=== PATIENT | female | born 1975 | race Caucasian/White ===

== ENCOUNTER 2024-05-24 17:14 | Emergency (ER) | payer BC, SELFPAY ==
[2024-05-24 17:19] VITALS: BP 143/90
[2024-05-24 18:06] LABS: % Basophils 0.8 % (0-2); % Eosinophils 2.8 % (0-6); % Immature Granulocytes 0.7 % (0-0.5); % Lymphocytes 39.5 % (20.5-51.1); % Monocytes 5.8 % (1.7-9.3); % Neutrophils 50.4 % (42.2-75.2); Absolute Basophils 0.1 10^3/uL (0-0.2); Absolute Eosinophils 0.4 10^3/uL (0-0.7); Absolute Immature Granulocytes 0.1 10^3/uL (0-0.05); Absolute Lymphocytes 5.6 10^3/uL (1.2-3.4); Absolute Monocytes 0.8 10^3/uL (0.1-0.6); Absolute Neutrophils 7.1 10^3/uL (1.4-6.5); Hematocrit 42.3 % (37.0-47.0); Mean Corp Hgb Conc. 33.1 g/dL (33.0-37.0); Mean Corpuscular Hgb 27.5 pg (27.0-31.0); Mean Corpuscular Volume 82.9 fL (81.0-99.0); Mean Platelet Volume 9.2 fL (7.4-10.4); Nucleated Red Blood Cells % 0 %; Platelet Count 449 10^3/uL (130-400); Red Cell Dist. Width 16.9 % (11.5-14.5); White Blood Cell Count 14.2 10^3/uL (4.8-10.8)
[2024-05-24 18:33] LABS: Troponin I < 0.012 ng/ml
[2024-05-24 18:48] LABS: ALT (SGPT) 16 U/L (0-35); AST (SGOT) 20 U/L (14-36); Albumin 4.3 g/dl (3.5-5.0); Alkaline Phosphatase 109 U/L (38-126); Blood Urea Nitrogen 16 mg/dl (7-17); Calcium 9.6 mg/dl (8.4-10.2); Carbon Dioxide 25 mmol/L (22-30); Chloride 97 mmol/L (98-107); Glucose 135 mg/dl (70-99); Potassium 3.5 mmol/L (3.5-5.1); Sodium 138 mmol/L (135-145); Total Bilirubin 0.5 mg/dl (0.2-1.3); Total Protein 7.1 g/dl (6.3-8.2); eGFR > 60.00
[2024-05-24 19:00] VITALS: BP 130/90
--- NOTE | 2024-05-24 20:27 | ED.GENMED ---
History of Present Illness
General
Chief Complaint: Headache
Time Seen by Provider: 05/24/24 19:43
History of Present Illness
History of Present Illness:
48-year-old female presents the emergency department for evaluation of headaches, upper back pain, and left shoulder discomfort that began this morning. She went to her primary care physician earlier in the day was noted to have an abnormal EKG and
thus referred to the emergency department. She denies chest pain or dyspnea but does feel short of breath with exertion. No fevers or chills. No nausea or vomiting.
Review of Systems
Review of Systems
Allergies reviewed?: Yes
All Other Systems: ROS reviewed and negative except as documented in HPI and ROS
Phy Exam
Physical Exam
Physical Exam:
GEN: Well appearing, NAD, WDWN
Eyes: PERRLA, EOMs intact, no scleral icterus
HENT: NCAT, oral mucosa moist
Lungs: CTAB, no wheezes, rales, rhonchi, normal chest wall excursion
Cardiac: RRR, no M/R/G, no peripheral edema. Radial pulses 2+ bilat
Abdomen: S, NT, ND, NABS, no masses or hepatosplenomegaly
Neuro: AO x 3, no focal deficits to BUE/BLE, normal sensation throughout
MSK: No gross deformity or ecchymosis. No edema. No digital clubbing
Skin: No rashes, petechiae. Normal color, no pallor or jaundice.
Psych: Calm, cooperative, proper hygiene
Course
Orders/Labs/Results
Orders:
Orders
05/24/24 17:17
Electrocardiogram (*1) Urgent
Reason for Study: Chest Pain
EKG- Treatment ONCE
05/24/24 17:57
CMP [Comprehensive Metabolic Panel] Urgent
Complete Blood Count/With Diff Urgent
HCG, Serum Qualitative Screen Urgent
Comment: ADD ON
Troponin I Urgent
05/24/24 20:38
CT Chest/abd/pelvis Angio W/wo Urgent
Comment:
Reason For Exam: mid back pain, EKG changes
05/24/24 20:41
Morphine Sulfate 4 mg IV NOW STA
05/24/24 20:42
Add On- LAB Urgent
Tests Added?: HCG
05/24/24 22:42
Troponin I Urgent
05/24/24 22:55
Ketorolac [Toradol] 15 mg IV NOW STA
Metoclopramide [Reglan] 10 mg IV NOW STA
Abnormal Lab Results
05/24/24
17:57
WBC 14.2 H 10^3/uL
(4.8-10.8)
RDW 16.9 H %
(11.5-14.5)
Plt Count 449 H 10^3/uL
(130-400)
Abs Immat Gran (auto) 0.1 H 10^3/uL
(0-0.05)
Absolute Neuts (auto) 7.1 H 10^3/uL
(1.4-6.5)
Absolute Lymphs (auto) 5.6 H 10^3/uL
(1.2-3.4)
Absolute Monos (auto) 0.8 H 10^3/uL
(0.1-0.6)
Immature Gran % 0.7 H %
(0-0.5)
Chloride 97 L mmol/L
(98-107)
Glucose 135 H mg/dl
(70-99)
05/24/24 17:57
05/24/24 17:57
Vital Signs
Initial and Last Documented VS:
Initial Vital Signs
Temp Pulse Resp BP Pulse Ox
98.1 F 102 16 143/90 96
05/24/24 17:19 05/24/24 17:19 05/24/24 17:19 05/24/24 17:19 05/24/24 17:19
Last Documented Vital Signs
Temp Pulse Resp BP Pulse Ox
98.1 F 76 14 116/63 94
05/24/24 17:19 05/24/24 23:15 05/24/24 23:15 05/24/24 23:00 05/24/24 22:45
MDM/Problems Addressed
MDM/Problems Addressed:
EKG is definitively abnormal however her symptoms are not strongly indicative of ACS. Dissection study was obtained due to the patient's reported headache and back pain and this was unremarkable. Initial and delta troponins are reassuring.
Unclear etiology to the patient's symptoms. Will refer to cardiology through the chest pain hotline due to the abnormal EKG
Comment
Comment:
EKG independently interpreted by me shows a normal sinus rhythm at a rate of [address] depressions, new compared to past EKG from 2022, could represent LVH
*Critical Care Note
Total Time (30-74mins, 75-104mins- exclusive of procedures): Not Applicable
ED Attending Note
-
Portions of this chart may have been created with voice recognition software.� Occasional wrong word or��sound alike� substitutions may have occurred due to the inherent limitations of voice recognition software.
Discharge Plan
Departure
Patient Disposition: Home (Routine Discharge)
Date of Disposition: 05/24/24
Time of Disposition: 23:22
Patient with high blood pressure during this ER visit?: No
Discharge Problem:
Headache, Abnormal EKG
Instructions: Chest Pain DCA Follow Up
Referrals:
Mando Hurtado DO [Family Provider] -
Silverio Romo DO [Active] -
Activity Restrictions/Additional Instructions:
The cause of your symptoms is not clear at this time
Your EKG is definitively abnormal compared to your past EKGs however there is no evidence for acute heart emergencies at this time
Please follow-up with the cardiology service as we discussed as you may require an echocardiogram for further workup of your abnormal EKG
Interventions
Interventions:
*Risk Screen - Suicide Last Done: 05/24/24 21:01
*General Assessment Last Done: 05/24/24 21:01
*Neglect/Abuse Screening Last Done: 05/24/24 21:01
ED- Fall Risk Assessment Last Done: 05/24/24 21:01
ED- Neurological Assessment Last Done: 05/24/24 23:17
Discharge Date and Time
Print Language: [place]
[2024-05-24] MEDS: MORPHINE SULFATE 4 MG IV (20:53)
[2024-05-24 20:54] VITALS: BMI 42.9
[2024-05-24 21:01] VITALS: BP 115/74
[2024-05-24 21:17] LABS: HCG, Serum Qualitative Screen Negative
[2024-05-24 22:00] VITALS: BP 124/82
[2024-05-24 22:32] VITALS: BP 111/60
[2024-05-24 23:00] VITALS: BP 116/63
[2024-05-24] MEDS: REGLAN 10 MG IV (23:10)
[2024-05-24] MEDS: TORADOL 15 MG IV (23:11)
[2024-05-24 23:14] LABS: Troponin I < 0.012 ng/ml
== END 2024-05-24 23:41 | disposition home or self-care (01) ==
LOC: EMR 17:14
PROVIDERS: Emergency Medicine; Physician Assistant; EMERGENCY PHYSICIAN Student in an Organized Health Care Education/Training Program; FAMILY PHYSICIAN Family Medicine
DX: R51.9 Headache, unspecified (principal); R94.31 Abnormal electrocardiogram [ECG] [EKG]; M54.6 Pain in thoracic spine
CPT/HCPCS: 99284; 96374; 96375; 71275; 74174; 80053; 84484; 84703; 85025; 93005; Q9967